=== PATIENT | male | born 1945 | race Caucasian/White ===

== ENCOUNTER 2020-09-27 09:25 | Outpatient (CLI) | payer MEDICARE ==
--- NOTE | 2020-09-27 10:48 | MRI Report ---
PROCEDURE: Shoulder RT W/O INDICATIONS: RT SHOULDER PAIN TECHNIQUE: Noncontrast oblique coronal T2 fast spin echo with fat saturation, oblique sagittal T1 spin echo and T2 fast spin echo with fat saturation, axial T1 spin echo and T2 fast spin echo with fat saturation t hrough the shoulder. COMPARISON: None. FINDINGS: Suboptimal evaluation secondary to severe motion artifact on some of the pulse sequences i ncluding the coronal fat-suppressed T2-weighted pulse sequence. Rotator cuff: Partial thickness articular and bursal sided tear of the supraspinatus tendon with thinned appearance , however no full-thickness defect is seen. Mild infraspinatus tendinopathy is present. Teres minor t endon appears intact. Subscapularis tendinopathy with interstitial tearing and thickening, and low-gr kim articular and bursal surface fraying. No atrophy of the rotator cuff muscles although there is mi ld fatty infiltration of the infraspinatus. Bones and bursae: No bone marrow contusions or fractures. Moderate acromioclavicular joint degeneration. The acromion demonstrates conventional anatomy, without an os acromiale. Mild subacromial/subdeltoid bursal fluid is present. Capsule and soft tissues: Labrum: Ill-defined fraying and amorphous intrasubstance signal changes involving the anteroinferior segment labrum. Incidental sublabral foramen noted. Superior labral fraying which is not well visuali zed due to motion artifact. There is also frayed appearance of the posterior and inferior labrum with blunting, likely chronic/degenerative.. Biceps: Long head biceps tendinopathy without complete rupture. Rotator interval: Partial obliteration of the subcoracoid fat signal intensity. Coracohumeral ligament: Not well seen and may be torn IMPRESSION: Partial thickness rotator cuff tear as detailed above. Mild subacromial-subdeltoid bursitis Circumferential degenerative fraying, and/or chronic degenerative tearing of the labrum. Suboptimal e valuation secondary to severe motion artifact. Long head biceps tendinopathy without rupture Reviewed by: Vishnu Garcia MD on 09/27/2020 10:47 AM PDT Approved by: Vishnu Garcia MD on 09/27/2020 10:47 AM PDT Station ID: [id number]
== END 2020-09-27 09:26 | disposition home or self-care (01) ==
LOC: DI 09:25
PROVIDERS: ATTEND Internal Medicine
DX: M25.511 Pain in right shoulder (principal); M75.111 Incomplete rotator cuff tear or rupture of right shoulder, not specified as traumatic; M75.51 Bursitis of right shoulder; M75.81 Other shoulder lesions, right shoulder

== ENCOUNTER 2022-10-30 15:22 | Outpatient (CLI) | payer MEDICARE ==
--- NOTE | 2022-10-30 16:37 | XRAY Report ---
PROCEDURE: Foot 3 View RT INDICATIONS: GREAT TOE PAIN RIGHT FOOT TECHNIQUE: 3 views of the foot were acquired. COMPARISON: None. FINDINGS: Bones: No fractures or dislocations. No suspicious bony lesions. Soft tissues: No suspicious soft tissue calcifications or masses. IMPRESSION: No acute bony abnormality. If pain persists with conservative management, consider repeat radiographs in 10-14 days or cross-sectional imaging. No abnormality is seen within the region of pain. Reviewed by: Flip Hong MD on 10/30/2022 4:36 PM PDT Approved by: Flip Hong MD on 10/30/2022 4:36 PM PDT Station ID: [id number]
== END 2022-10-30 15:23 | disposition home or self-care (01) ==
LOC: DI 15:22
PROVIDERS: ATTEND Internal Medicine
DX: M79.674 Pain in right toe(s) (principal)

== ENCOUNTER 2023-04-03 14:07 | Emergency (ER) | payer MEDICARE ==
--- NOTE | 2023-04-03 15:43 | XRAY Report ---
PROCEDURE: Humerus RT INDICATIONS: Trauma TECHNIQUE: 2 views of the humerus were acquired. COMPARISON: None. FINDINGS: Bones: No fractures or dislocations. No suspicious bony lesions. Soft tissues: No suspicious soft tissue calcifications or masses. Visualized right lung is clear. IMPRESSION: No acute bony abnormality. Reviewed by: Julia Medina MD on 04/03/2023 3:42 PM PST Approved by: Julia Medina MD on 04/03/2023 3:42 PM PST Station ID: [id number]
--- NOTE | 2023-04-03 17:37 | ED Physician Documentation ---
PD HPI UPPER EXT INJURY - Stated complaint Stated Complaint: RT SHOULDER INJ - Chief complaint Chief Complaint: Ext Problem - History obtained from History obtained from: Patient - History of Present Illness Location: Right, Shoulder Type of injury: Fall Timing - onset: Yesterday Timing - details: Abrupt onset, Still present (pain with abduction and rotational movements.) Worsened by: Moving Associated symptoms: No: Weakness, Numbness, Swelling Contributing factors: No: Anticoagulated Recently seen: Not recently seen Review of Systems Skin: denies: Abrasion (s), Laceration (s) Musculoskeletal: denies: Neck pain, Back pain Neurologic: denies: Focal weakness, Numbness PD PAST MEDICAL HISTORY - Present Medications Home Medications: Ambulatory Orders Medication Instructions Recorded Confirmed Meloxicam [Mobic] 7.5 mg PO BID 10 Days #20 tablet 04/03/23 dexAMETHasone [Decadron] 4 mg PO DAILY #5 tablet 04/03/23 - Allergies Allergies/Adverse Reactions: Allergies Allergy/AdvReac Type Severity Reaction Status Date / Time azithromycin [From Zithromax] AdvReac Unknown Verified 04/03/23 14:59 ciprofloxacin [From Cipro] AdvReac Anaphylaxis Verified 04/03/23 14:59 PD ED PE NORMAL - Vitals Vital signs reviewed: Yes - General General: Alert and oriented X 3, No acute distress (guarding ROM of the right shoulder with him using jacket buttons area as improv sling. ), Well developed/nourished - Neck Neck: Supple, no meningeal sign, No bony TTP - Extremities Extremities: Other (right clavicle not tender and AC area is okay. Tender posterior shoulder. No dislocation. Passive ROM not as painful. Active movement against resistance hurts with abduction, extension and internal rotation. Pain more with touching opposite shoulder than back pocket. ) - Neuro Neuro: Alert and oriented X 3, No motor deficit, No sensory deficit Results - Vitals Vitals: Oxygen O2 Source Room air - Rads (name of study) shoulder xray Relevant Findings:: Prelim report reviewed, EMP independent interpretation of test (no fractures nor dislocation. ) PD Medical Decision Making - ED course Complexity details: reviewed results (xray wtihout fractures nor dislocations. ), considered differential (fell onto shoulder. Sems shoulder strain of rotator d=cuff muscles/tendons. Less likely torn but will treat with sling and gentle passive ROM with ortho follow up. ), d/w patient Departure - Departure Disposition: 01 Home, Self Care Clinical Impression: Accidental fall, Right shoulder strain Condition: Stable Record reviewed to determine appropriate education?: Yes Instructions: ED Torn Rotator Cuff Follow-Up: James Ramirez MD [Primary Care Provider] - Prescriptions: dexAMETHasone [Decadron] 4 mg PO DAILY #5 tablet Meloxicam [Mobic] 7.5 mg PO BID 10 Days #20 tablet Comments: Your x-ray is good without any signs of fractures nor separation. On exam it does sound likely that you have some rotator cuff injury given the directions that cause pain. There is some pain with biceps motion as well but it does not feel like a tear of the biceps heads. Presume a strain. At this point I would suggest use of the sling with limited range of motion and use of the right arm for 1 to 2 weeks. However be certain to use gentle passive range of motion a few times daily to prevent "stiffening" of the shoulder (which essentially is healing of any tearing of the rotator cuff fibers that might adhere to the joint capsule and get stuck, adhesive capsulitis). I would suggest some anti-inflammatories. As discussed we can use some steroids initially. Use Decadron daily for 5 days. From there changed to some anti- inflammatories NSAID such as naproxen or ibuprofen or you could use a longer half-life 1 called meloxicam so it is only twice daily. To that add Tylenol 500 to 650 mg 4 times daily for pain or hydrocodone/acetaminophen if needed for worse pain. Follow-up with your primary care/orthopedics for reevaluation of this after 1 or 2 weeks to see how it is doing at that point and if it needs any further treatment or evaluation. Forms: PCP List Discharge Date/Time: 04/03/23 18:13
[2023-04-03] MEDS ORDERED: dexAMETHasone 4 MG TABLET PO STA (17:50)
[2023-04-03 18:20] VITALS: BP 157/92; O2SAT 98
== END 2023-04-03 18:13 | disposition home or self-care (01) ==
LOC: ED 14:07
DX: S46.911A Strain of unspecified muscle, fascia and tendon at shoulder and upper arm level, right arm, initial encounter (principal); W19.XXXA Unspecified fall, initial encounter
CPT/HCPCS: 73060; 99283; 99284; J8540